=== PATIENT | male | born 1975 | race Asian ===

== ENCOUNTER 2020-01-16 14:58 | Emergency (ER) | payer OTHER, SELFPAY ==
[~2020-01-16] VITALS: Ht 167.6 cm; Wt 86.2 kg
[2020-01-16 15:00] VITALS: Ht 167.6 cm; Wt 86.2 kg
[2020-01-16 16:18] LABS: BASOPHIL % 0.8 % (0-2)
[2020-01-16 16:26] LABS: PLATELET COUNT 78 x10^3mcL (130-400); RED CELL DISTRIBUTION WIDTH 14.7 % (11.5-14.5)
[2020-01-16 16:59] LABS: CALCIUM 8.7 mg/dL (8.5-10.1); CARBON DIOXIDE 30.3 mmol/L (21-32); CHLORIDE SERUM 99 mmol/L (98-107); GFR1 > 60 mL/min; GLUCOSE SERUM 116 mg/dL (74-106); POTASSIUM SERUM 3.6 mmol/L (3.5-5.1); SODIUM SERUM 137 mmol/L (136-145)
[2020-01-16 17:03] LABS: ALKALINE PHOSPHATASE 249 U/L (46-116); ALT/SGPT 380 U/L (16-63); AST/SGOT 138 U/L (15-37); BILIRUBIN TOTAL 1.45 mg/dL (0.20-1.00); LACTIC DEHYDROGENASE (LDH) 502 U/L (100-190); TOTAL PROTEIN, SERUM 7.4 g/dL (6.4-8.2)
[2020-01-16 17:07] LABS: ALBUMIN 2.7 g/dL (3.4-5.0)
[2020-01-16 18:00] VITALS: BP 128/82
== END 2020-01-16 18:00 | disposition home or self-care (01) ==
LOC: ED 14:58
PROVIDERS: Emergency Medicine
DX: J06.9 Acute upper respiratory infection, unspecified (principal); I10 Essential (primary) hypertension; E11.9 Type 2 diabetes mellitus without complications; E78.00 Pure hypercholesterolemia, unspecified
CPT/HCPCS: 87804; J7030; Q0092

== ENCOUNTER 2020-01-25 22:35 | Inpatient (IN) | payer OTHER, SELFPAY ==
[~2020-01-25] VITALS: Ht 167.6 cm; Wt 88.9 kg
[2020-01-25 22:38] VITALS: Ht 167.6 cm; Wt 88.9 kg
[2020-01-26 00:42] LABS: BASOPHIL % 0.2 % (0-2); PLATELET COUNT 333 x10^3mcL (130-400); RED CELL DISTRIBUTION WIDTH 14.8 % (11.5-14.5)
[2020-01-26 00:45] LABS: CALCIUM 8.9 mg/dL (8.5-10.1); CARBON DIOXIDE 29.2 mmol/L (21-32); CHLORIDE SERUM 99 mmol/L (98-107); CREATININE SERUM 0.9 mg/dL (0.7-1.3); GFR1 > 60 mL/min; GLUCOSE SERUM 127 mg/dL (74-106); POTASSIUM SERUM 3.6 mmol/L (3.5-5.1); SODIUM SERUM 136 mmol/L (136-145)
[2020-01-26 00:50] LABS: ALKALINE PHOSPHATASE 197 U/L (46-116); ALT/SGPT 168 U/L (16-63); AST/SGOT 196 U/L (15-37); BILIRUBIN TOTAL 1.2 mg/dL (0.20-1.00)
[2020-01-26 00:51] LABS: ALBUMIN 1.8 g/dL (3.4-5.0)
[2020-01-26 02:00] LABS: C REACTIVE PROTEIN 47.9 mg/dL (<=0.9)
[2020-01-26] MEDS ORDERED: COZ50 PO (05:34)
[2020-01-26] MEDS ORDERED: ATORVASTATIN CA20 M1 PO (05:34)
[2020-01-26] MEDS ORDERED: FORTAMET500 M1 PO (05:34)
[2020-01-26] MEDS ORDERED: ST. JOSEPH ASPI81 MG PO (05:35)
[2020-01-26 06:43] VITALS: BP 133/70
[2020-01-26 08:23] VITALS: BP 124/68
[2020-01-26 12:33] VITALS: BP 120/74
[2020-01-26 17:56] VITALS: BP 150/80
[2020-01-26 19:43] VITALS: BP 108/66
[2020-01-27 06:43] VITALS: BP 129/75
[2020-01-27 07:03] LABS: BASOPHIL % 0.3 % (0-2); PLATELET COUNT 394 x10^3mcL (130-400)
[2020-01-27 07:20] LABS: ALKALINE PHOSPHATASE 161 U/L (46-116); ALT/SGPT 138 U/L (16-63); AST/SGOT 121 U/L (15-37); BILIRUBIN TOTAL 0.88 mg/dL (0.20-1.00); CALCIUM 8.6 mg/dL (8.5-10.1); CARBON DIOXIDE 27.1 mmol/L (21-32); CHLORIDE SERUM 99 mmol/L (98-107); CREATININE SERUM 0.9 mg/dL (0.7-1.3); GFR1 > 60 mL/min; GLUCOSE SERUM 135 mg/dL (74-106); POTASSIUM SERUM 3.3 mmol/L (3.5-5.1); SODIUM SERUM 135 mmol/L (136-145); TOTAL PROTEIN, SERUM 6.5 g/dL (6.4-8.2); TRIGLYCERIDES 191 mg/dL (<150)
[2020-01-27 07:21] LABS: ALBUMIN 1.7 g/dL (3.4-5.0); CHOLESTEROL 96 mg/dL (<200); HDL CHOLESTEROL 12 mg/dL (40-60)
[2020-01-27 07:32] LABS: RED CELL DISTRIBUTION WIDTH 14.8 % (11.5-14.5)
[2020-01-27 08:30] VITALS: BP 109/69
[2020-01-27 13:00] VITALS: BP 125/73
[2020-01-27 16:00] VITALS: BP 122/69
[2020-01-27 21:36] VITALS: BP 126/82
[2020-01-28 05:36] VITALS: BP 111/71
[2020-01-28 09:06] VITALS: BP 118/73
[2020-01-28 12:30] VITALS: BP 127/74
[2020-01-28 17:55] VITALS: BP 126/82
[2020-01-28 20:30] VITALS: BP 143/85
[2020-01-29 06:00] VITALS: BP 129/84
[2020-01-29 07:21] LABS: ALKALINE PHOSPHATASE 149 U/L (46-116); ALT/SGPT 117 U/L (16-63); AST/SGOT 71 U/L (15-37); BILIRUBIN TOTAL 0.51 mg/dL (0.20-1.00); CALCIUM 9.1 mg/dL (8.5-10.1); CARBON DIOXIDE 29.5 mmol/L (21-32); CHLORIDE SERUM 103 mmol/L (98-107); CREATININE SERUM 0.8 mg/dL (0.7-1.3); GFR1 > 60 mL/min; POTASSIUM SERUM 4.3 mmol/L (3.5-5.1); SODIUM SERUM 140 mmol/L (136-145); TOTAL PROTEIN, SERUM 7.1 g/dL (6.4-8.2)
[2020-01-29 07:27] LABS: ALBUMIN 2.1 g/dL (3.4-5.0)
[2020-01-29 07:40] LABS: GLUCOSE SERUM 95 mg/dL (74-106)
[2020-01-29 08:20] VITALS: BP 128/82
[2020-01-29 12:50] VITALS: BP 140/86
[2020-01-29 13:43] VITALS: BP 140/86
== END 2020-01-29 15:43 | disposition home or self-care (01) | DRG 316 ==
LOC: ED 22:35 → DU 01-26 05:05
PROVIDERS: Emergency Medicine; Internal Medicine Cardiovascular Disease; ADMIT Internal Medicine Pulmonary Disease
DX: I40.0 Infective myocarditis (principal); E78.00 Pure hypercholesterolemia, unspecified; I10 Essential (primary) hypertension; E11.9 Type 2 diabetes mellitus without complications; E66.9 Obesity, unspecified; R74.0 Nonspecific elevation of levels of transaminase and lactic acid dehydrogenase [LDH]; B27.00 Gammaherpesviral mononucleosis without complication; E78.5 Hyperlipidemia, unspecified; I25.10 Atherosclerotic heart disease of native coronary artery without angina pectoris; Z79.84 Long term (current) use of oral hypoglycemic drugs; Z79.899 Other long term (current) drug therapy; Z82.49 Family history of ischemic heart disease and other diseases of the circulatory system; Z03.818 Encounter for observation for suspected exposure to other biological agents ruled out
CPT/HCPCS: 36600; 83880; 85378; 86308; 86644; 86645; 87804; G0378; J0456; J1650; J7030; J7050; Q0092; Q9967